=== PATIENT | female | born 1990 | race African-American/Black ===

== ENCOUNTER 2021-01-23 17:43 | Emergency (ER) | payer OTHER ==
[2021-01-23 18:09] VITALS: BP 124/74; PULSE 98; TEMP 97.9; BMI 34.7
== END 2021-01-23 18:47 | disposition home or self-care (01) ==
LOC: JERFT 17:43
DX: S93.402A Sprain of unspecified ligament of left ankle, initial encounter (principal)
CPT/HCPCS: 73610-TC-LT-FY; 99284-25